=== PATIENT | female | born 1975 | race Caucasian/White ===

== ENCOUNTER 2017-10-18 10:19 | Emergency (ER) | payer MEDICAID ==
[~2017-10-18] VITALS: Ht 165.1 cm; Wt 59.0 kg
[~2017-10-18 10:19] MED LIST: ATEN25TA PO; CARB10VI IV; LORA-259 PO; ONDA8TAB9 PO; PROM25TA15 PO; TAMO10TA4 PO
--- NOTE | 2017-10-18 10:38 | NUR ---
PT TO ED C/O ON/OFF HEADACHE, DIZZY, TINGLING X 2 DAYS S/P FELL OFF THE STAIRS. NO KO REPORTED. PT WAS SEEN IN [facility]. VSS
[2017-10-18 13:54] VITALS: BP 124/82
--- NOTE | 2017-10-18 13:55 | NUR ---
Patient discharged to home in stable condition. Written and verbal after care instructions given. Patient verbalizes understanding of instruction.
== END 2017-10-18 13:56 | disposition home or self-care (01) ==
LOC: ER 10:22
DX: S05.12XA Contusion of eyeball and orbital tissues, left eye, initial encounter (principal); R20.2 Paresthesia of skin; F07.81 Postconcussional syndrome; G44.309 Post-traumatic headache, unspecified, not intractable; Z90.710 Acquired absence of both cervix and uterus; Z85.43 Personal history of malignant neoplasm of ovary; Z85.89 Personal history of malignant neoplasm of other organs and systems; Z88.2 Allergy status to sulfonamides; Z88.1 Allergy status to other antibiotic agents; Z88.8 Allergy status to other drugs, medicaments and biological substances; Z88.6 Allergy status to analgesic agent; W10.9XXA Fall (on) (from) unspecified stairs and steps, initial encounter; Y93.89 Activity, other specified; Y92.89 Other specified places as the place of occurrence of the external cause; Y99.8 Other external cause status
CPT/HCPCS: 70450-TC; A4606; Z7610